=== PATIENT | male | born 1975 | race Caucasian/White ===

== ENCOUNTER → 2020-02-20 | Outpatient (CLI) | payer BC ==
[~2020-02-20] MED LIST: CIPRO 500MG TA500 MG PO; FLAGYL500 MG PO; NO HOME MEDICATIONS; NORCO 325 MG-51 TAB PO
== END ==
LOC: COL.RAD 07:08
DX: Z01.812 Encounter for preprocedural laboratory examination (principal); R19.05 Periumbilic swelling, mass or lump
CPT/HCPCS: Q9967